=== PATIENT | male | born 1960 | race Caucasian/White ===

== ENCOUNTER 2018-11-11 17:01 | Inpatient (IN) | payer OTHER ==
[~2018-11-11] VITALS: Ht 175.3 cm; Wt 94.8 kg
--- NOTE | ~2018-11-11 | EKG ---
[place], [place] ELECTROCARDIOGRAM REPORT NAME: CHRISTIAN BURNETTE UNIT #: [id number] ROOM: 516 DOCTOR: THEODORE DRAFT REPORT BIRTHDATE: [birth year] [facility] Test Date: 2018-11-11 Test Time: 17:39:55 Pat Name: CHRISTIAN BURNETTE Department: Room: 516 Gender: M [employer] Operator: : [id number] Requested By: SYBIL DEL TORO Order Number: [id number] Reading MD: Hilaria Martins MD Measurements Intervals [place] Rate: 91 P: 21 [place]: 160 QRS: 18 QRSD: 96 T: -14 QT: 382 QTc: 471 Interpretive Statements Sinus rhythm Inferior infarct, age indeterminate Electronically Signed On 11-13-2018 8:09:22 PDT by Hilaria Martins MD CM:EKGRPT:ELECTROCARDIOGRAM REPORT [id number] SYBIL JAIMES DRAFT REPORT SYBIL DEL TORO M.D.
[~2018-11-11 17:01] MED LIST: 'TENORMIN50 MG PO; ATARAX,VISTARIL50 MG PO; CARBIDOPA/LEVOD1 TA1 PO; GLUCOPHAGE1000 MG PO; LANTUS SOL100 UNIT/1 SC; LANTUS100 U/ML SC; LOSARTAN POTASS25 M1 PO; METFORMIN500 MG PO; MIRALAX POWDER17 G1 PO; NEURONTIN300 MG PO; NOVOLOG FLEX100 U/ML SC; NOVOLOG10 ML IV; SEROQUEL25 MG PO; SIMVASTATIN5 MG PO; SINEMET PO; ZOFRAN 4 MG ED2 TAB PO
[2018-11-11 17:03] VITALS: BP 129/85
[2018-11-11 17:26] LABS: BASO # 0.1 10*3/uL (0.0-0.1); BASO % 0.5 % (0.0-1.0); EOS # 0.1 10*3/uL (0.0-0.4); EOS % 0.4 % (1.0-4.0); HEMATOCRIT 51.5 % (42.0-52.0); HEMOGLOBIN 17.7 g/dl (14.0-18.0); LYMPH # 2.5 10*3/uL (1.3-4.4); LYMPH % 14.3 % (27.0-41.0); MEAN CORPUSCULAR HGB 31.3 pg (27.0-31.0); MEAN CORPUSCULAR HGB CONC 34.4 g/dl (33.0-37.0); MEAN PLATELET VOLUME 10.4 fl (9.6-12.3); MONO # 0.6 10*3/uL (0.1-1.0); MONO % 3.6 % (3.0-9.0); NEUT # 14.2 10*3/uL (2.3-7.9); NEUT % 80.1 % (47.0-73.0); PLATELET COUNT AUTOMATED 250 10*3/uL (130-400); RED BLOOD COUNT 5.66 10*6/uL (4.50-5.90); RED CELL DISTRI WIDTH 12.1 % (0-14.5); WHITE BLOOD COUNT 17.7 10*3/uL (4.8-10.8)
[2018-11-11 17:40] LABS: ALBUMIN 3.9 gm/dl (3.1-4.5); ALKALINE PHOSPHATASE 91 U/L (45-117); BUN 8 mg/dl (7-24); CHLORIDE 103 mmol/L (98-107); CREATININE 1.22 mg/dL (0.70-1.30); POTASSIUM 4.5 mmol/L (3.5-5.1); SGOT/AST 10 IU/L (3-35); SGPT/ALT 26 U/L (12-78); SODIUM 135 mmol/L (136-145); TOTAL PROTEIN 7.4 gm/dL (6.4-8.2)
[2018-11-11 17:41] VITALS: BP 113/70
[2018-11-11 18:39] VITALS: BP 140/77
[2018-11-11 19:22] VITALS: BP 139/80
[2018-11-11 21:30] VITALS: BP 129/48
[2018-11-12 01:00] VITALS: BP 132/87
[2018-11-12 01:40] LABS: BILIRUBIN NEGATIVE (NEGATIVE); BLOOD NEGATIVE (NEGATIVE); CLARITY SL CLOUDY (CLEAR); COLOR YELLOW (YELLOW); GLUCOSE 3+ (NEGATIVE); KETONE NEGATIVE (NEGATIVE); LEUKO ESTERASE NEGATIVE (NEGATIVE); NITRITE NEGATIVE (NEGATIVE); PH 5.5 (5.0-9.0); SPECIFIC GRAVITY 1.025 (1.005-1.030); UROBILINOGEN 0.2 E.U./dl (0.2-1.0)
[2018-11-12 01:47] LABS: BACTERIA 1+; HYALINE CAST TNTC; RBC 0-2 rbc/hpf (0-2)
[2018-11-12 01:48] LABS: URINE AMPHETAMINES < 1000 (1000ng/ml); URINE BARBITURATES < 200 (200ng/ml); URINE BENZODIAZEPINES < 200 (200ng/ml); URINE CANNABINOIDS (THC) < 50 (50ng/ml); URINE COCAINE < 300 (300ng/ml); URINE METHADONE < 300 (300ng/ml); URINE OPIATES > 300 (300ng/ml); URINE PHENCYCLIDINE < 25 (25ng/ml)
[2018-11-12 02:28] VITALS: BP 141/84
[2018-11-12] MEDS ORDERED: NOVOLOG100 UNIT/1 SC (03:05)
[2018-11-12] MEDS ORDERED: REQUIP2 MG PO (03:07)
[2018-11-12] MEDS ORDERED: CYMBALTA30 MG PO (03:08)
[2018-11-12] MEDS ORDERED: HYDROXYZINE HCL25 MG PO (03:09)
[2018-11-12] MEDS ORDERED: LIPITOR40 MG PO (03:09)
[2018-11-12] MEDS ORDERED: PLAVIX75 M1 PO (03:09)
[2018-11-12] MEDS ORDERED: ENALAPRIL20 MG PO (03:10)
[2018-11-12] MEDS ORDERED: DEPAKOTE125 MG PO (03:10)
[2018-11-12] MEDS ORDERED: K-TAB20 MEQ PO (03:11)
[2018-11-12] MEDS ORDERED: CHLORTHALIDONE50 MG PO (03:11)
[2018-11-12] MEDS ORDERED: LOPID600 M1 PO (03:11)
[2018-11-12] MEDS ORDERED: ESCITALOPRAM OXA5 MG PO (03:12)
[2018-11-12 06:36] LABS: BASO # 0.1 10*3/uL (0.0-0.1); BASO % 0.4 % (0.0-1.0); EOS # 0.2 10*3/uL (0.0-0.4); EOS % 1.3 % (1.0-4.0); HEMATOCRIT 49.7 % (42.0-52.0); HEMOGLOBIN 17.2 g/dl (14.0-18.0); LYMPH # 4.4 10*3/uL (1.3-4.4); LYMPH % 37.9 % (27.0-41.0); MEAN CORPUSCULAR HGB 31.5 pg (27.0-31.0); MEAN CORPUSCULAR HGB CONC 34.6 g/dl (33.0-37.0); MEAN PLATELET VOLUME 10.3 fl (9.6-12.3); MONO # 0.7 10*3/uL (0.1-1.0); MONO % 6.2 % (3.0-9.0); NEUT # 6.2 10*3/uL (2.3-7.9); NEUT % 53.4 % (47.0-73.0); PLATELET COUNT AUTOMATED 238 10*3/uL (130-400); RED BLOOD COUNT 5.46 10*6/uL (4.50-5.90); RED CELL DISTRI WIDTH 12.3 % (0-14.5); WHITE BLOOD COUNT 11.6 10*3/uL (4.8-10.8)
[2018-11-12 06:54] LABS: ALBUMIN 3.5 gm/dl (3.1-4.5); ALKALINE PHOSPHATASE 82 U/L (45-117); BUN 15 mg/dl (7-24); CHLORIDE 102 mmol/L (98-107); CHOLESTEROL 118 mg/dL (<200); CREATININE 1.26 mg/dL (0.70-1.30); HDL CHOLESTEROL 45 mg/dl (40-60); LDL CHOLESTEROL 39 mg/dL (9-159); PHOSPHOROUS 4.3 mg/dL (2.5-4.9); POTASSIUM 4.6 mmol/L (3.5-5.1); SGOT/AST 10 IU/L (3-35); SGPT/ALT 21 U/L (12-78); SODIUM 134 mmol/L (136-145); TOTAL PROTEIN 6.9 gm/dL (6.4-8.2); TRIGLYCERIDES 169 mg/dl (<150); VLDL CHOLESTEROL 34 mg/dL (6-40)
[2018-11-12 07:05] LABS: INTERNATIONAL NORM RATIO 0.9 (2.0-3.5)
[2018-11-12 08:00] VITALS: BP 138/70
[2018-11-12 08:40] LABS: VITAMIN D, 25-HYDROXY 26.7 ng/mL (30-100)
[2018-11-12 12:00] VITALS: BP 130/58
== END 2018-11-12 15:04 | disposition home or self-care (01) | DRG 69 ==
LOC: ED 17:01 → EDHOLD 11-12 00:20 → 5E 11-12 00:20
PROVIDERS: Emergency Medicine; Student in an Organized Health Care Education/Training Program; ADMIT Internal Medicine
DX: G45.9 Transient cerebral ischemic attack, unspecified (principal); R65.10 Systemic inflammatory response syndrome (SIRS) of non-infectious origin without acute organ dysfunction; E87.1 Hypo-osmolality and hyponatremia; E87.2 Acidosis; I10 Essential (primary) hypertension; E78.5 Hyperlipidemia, unspecified; F32.9 Major depressive disorder, single episode, unspecified; Z96.652 Presence of left artificial knee joint; J44.9 Chronic obstructive pulmonary disease, unspecified; G89.29 Other chronic pain; M54.9 Dorsalgia, unspecified; E11.40 Type 2 diabetes mellitus with diabetic neuropathy, unspecified; E11.51 Type 2 diabetes mellitus with diabetic peripheral angiopathy without gangrene; F17.210 Nicotine dependence, cigarettes, uncomplicated; E86.0 Dehydration; E11.65 Type 2 diabetes mellitus with hyperglycemia; D72.829 Elevated white blood cell count, unspecified; D72.9 Disorder of white blood cells, unspecified; D72.810 Lymphocytopenia; F10.10 Alcohol abuse, uncomplicated; M15.9 Polyosteoarthritis, unspecified; E11.42 Type 2 diabetes mellitus with diabetic polyneuropathy; M54.5 Low back pain; E66.9 Obesity, unspecified; F19.10 Other psychoactive substance abuse, uncomplicated; Z79.899 Other long term (current) drug therapy; Z79.84 Long term (current) use of oral hypoglycemic drugs; Z79.4 Long term (current) use of insulin; I25.2 Old myocardial infarction; Z90.49 Acquired absence of other specified parts of digestive tract; Z83.3 Family history of diabetes mellitus; Z82.49 Family history of ischemic heart disease and other diseases of the circulatory system; Z82.3 Family history of stroke; Z71.6 Tobacco abuse counseling; Z68.30 Body mass index [BMI] 30.0-30.9, adult

== ENCOUNTER 2019-08-08 23:54 | Emergency (ER) | payer BC ==
[~2019-08-08] VITALS: Ht 175.2 cm; Wt 94.8 kg
[~2019-08-08 23:54] MED LIST changes: +CHLORTHALIDONE50 MG PO; +CYMBALTA30 MG PO; +DEPAKOTE125 MG PO; +ENALAPRIL20 MG PO; +ESCITALOPRAM OXA5 MG PO; +HYDROXYZINE HCL25 MG PO; +K-TAB20 MEQ PO; +LIPITOR40 MG PO; +LOPID600 M1 PO; +NOVOLOG100 UNIT/1 SC; +PLAVIX75 M1 PO; +REQUIP2 MG PO
[2019-08-09 00:16] LABS: BASO # 0.1 10*3/uL (0.0-0.1); BASO % 0.5 % (0.0-1.0); EOS # 0.3 10*3/uL (0.0-0.4); EOS % 2.1 % (1.0-4.0); HEMATOCRIT 45.2 % (42.0-52.0); LYMPH # 4.6 10*3/uL (1.3-4.4); LYMPH % 32.1 % (27.0-41.0); MEAN CELL VOLUME 91.3 fl (80.0-94.0); MEAN CORPUSCULAR HGB 31.9 pg (27.0-31.0); MEAN PLATELET VOLUME 9.3 fl (9.6-12.3); MONO # 1.3 10*3/uL (0.1-1.0); MONO % 9.4 % (3.0-9.0); NEUT # 7.9 10*3/uL (2.3-7.9); NEUT % 55.4 % (47.0-73.0); PLATELET COUNT AUTOMATED 296 10*3/uL (130-400); RED BLOOD COUNT 4.95 10*6/uL (4.50-5.90); RED CELL DISTRI WIDTH 13.1 % (0-14.5); WHITE BLOOD COUNT 14.2 10*3/uL (4.8-10.8)
[2019-08-09 00:26] LABS: ACT PARTIAL THROMBO TIME 27.8 SECONDS (20.0-32.1); INTERNATIONAL NORM RATIO 0.9 (2.0-3.5)
[2019-08-09 00:34] LABS: ALKALINE PHOSPHATASE 78 U/L (45-117); BUN 12 mg/dl (7-24); CHLORIDE 100 mmol/L (98-107); CREATININE 1.13 mg/dL (0.70-1.30); POTASSIUM 3.6 mmol/L (3.5-5.1); SGOT/AST 15 IU/L (3-35); SGPT/ALT 32 U/L (12-78); SODIUM 132 mmol/L (136-145); TOTAL PROTEIN 7.4 gm/dL (6.4-8.2)
[2019-08-09 00:35] LABS: TROPONIN I < 0.015 ng/ml (<0.045)
[2019-08-09 03:03] LABS: CLARITY CLEAR (CLEAR); COLOR YELLOW (YELLOW)
[2019-08-09 03:04] LABS: BILIRUBIN NEGATIVE (NEGATIVE); BLOOD NEGATIVE (NEGATIVE); GLUCOSE NEGATIVE (NEGATIVE); KETONE NEGATIVE (NEGATIVE); NITRITE NEGATIVE (NEGATIVE); SPECIFIC GRAVITY 1.015 (1.005-1.030); UROBILINOGEN 0.2 E.U./dl (0.2-1.0)
[2019-08-09 03:11] LABS: LEUKO ESTERASE TRACE (NEGATIVE)
[2019-08-09 03:12] LABS: BACTERIA TRACE; EPITHELIAL CELLS 0-2
[2019-08-09] MEDS ORDERED: VIBRAMYCIN100 MG PO (03:58)
[2019-08-09] MEDS ORDERED: PEPCID20 MG PO (03:58)
== END 2019-08-09 05:30 | disposition home or self-care (01) ==
LOC: ED 23:54
PROVIDERS: Emergency Medicine
DX: R07.89 Other chest pain (principal); K20.8 Other esophagitis; N39.0 Urinary tract infection, site not specified; Z79.899 Other long term (current) drug therapy; Z79.4 Long term (current) use of insulin; Z79.84 Long term (current) use of oral hypoglycemic drugs; Z90.49 Acquired absence of other specified parts of digestive tract

== ENCOUNTER 2019-09-01 17:11 | Observation (INO) | payer OTHER ==
[~2019-09-01] VITALS: Ht 175.2 cm; Wt 96.9 kg
[~2019-09-01 17:11] MED LIST changes: +PEPCID20 MG PO; +VIBRAMYCIN100 MG PO
[2019-09-01 17:18] VITALS: BP 147/90
--- NOTE | 2019-09-01 17:28 | NUR ---
PATIENT STATES THAT HE DID TAKE CIALIS THIS MORNING.
[2019-09-01 17:33] LABS: BASO % 0.3 % (0.0-1.0); EOS # 0.3 10*3/uL (0.0-0.4); EOS % 2.1 % (1.0-4.0); HEMATOCRIT 47.4 % (42.0-52.0); LYMPH # 3.3 10*3/uL (1.3-4.4); LYMPH % 25.7 % (27.0-41.0); MEAN CELL VOLUME 94.4 fl (80.0-94.0); MEAN CORPUSCULAR HGB 31.9 pg (27.0-31.0); MEAN CORPUSCULAR HGB CONC 33.8 g/dl (33.0-37.0); MEAN PLATELET VOLUME 9.8 fl (9.6-12.3); NEUT # 8.1 10*3/uL (2.3-7.9); NEUT % 63.6 % (47.0-73.0); PLATELET COUNT AUTOMATED 293 10*3/uL (130-400); RED BLOOD COUNT 5.02 10*6/uL (4.50-5.90); RED CELL DISTRI WIDTH 13.3 % (0-14.5); WHITE BLOOD COUNT 12.7 10*3/uL (4.8-10.8)
[2019-09-01 17:48] LABS: ALBUMIN 3.7 gm/dl (3.1-4.5); ALKALINE PHOSPHATASE 73 U/L (45-117); BUN 15 mg/dl (7-24); CHLORIDE 107 mmol/L (98-107); CREATININE 1.08 mg/dL (0.70-1.30); POTASSIUM 4.2 mmol/L (3.5-5.1); SGOT/AST 12 IU/L (3-35); SGPT/ALT 30 U/L (12-78); SODIUM 138 mmol/L (136-145); TOTAL PROTEIN 7.4 gm/dL (6.4-8.2)
[2019-09-01 17:51] LABS: ACT PARTIAL THROMBO TIME 26.8 SECONDS (20.0-32.1); INTERNATIONAL NORM RATIO 0.9 (2.0-3.5)
[2019-09-01 17:54] LABS: TROPONIN I < 0.015 ng/ml (<0.045)
--- NOTE | 2019-09-01 18:26 | NUR ---
PATIENT PLACED HIS CALL LIGHT ON AND STATES "I FEEL LIKE MY BLOOD SUGAR IS LOW IM DIABETIC". [facility] SHOWED 96. PT APPEARS A LITTELE DIAPHORETIC, ALL OTHER VS WNL.
[2019-09-01 18:28] VITALS: BP 134/93
[2019-09-01 19:36] VITALS: BP 132/97
--- NOTE | 2019-09-01 20:00 | NUR ---
24 HR chart check completed.
[2019-09-01 20:18] VITALS: BP 137/80
--- NOTE | 2019-09-01 20:18 | NUR ---
A 58, admitted to , under the services of MELISSA Reagan DO with a diagnosis of CHEST PAIN. Chief complaint is LEFT SIDED CHEST PRESSURE. Patient arrived via bed from ER. Monitor applied. Initial assessment completed. Vital signs taken and recorded. MELISSA REAGAN DO / DR CHILDS notified of admission to the unit. Orders received. See assessment for past medical history, medications and allergies. Patient and/or family oriented to unit. [facility] visitation policy reviewed. Clothing/patient valuable form completed. HITESH PÉREZ
[2019-09-01 20:30] VITALS: BP 137/80
[2019-09-01] MEDS ORDERED: HYDROCHLOROTH12.5 M3 PO (20:58)
[2019-09-01] MEDS ORDERED: ARIPIPRAZOLE5 MG PO (20:58)
[2019-09-01] MEDS ORDERED: METFORMIN HYD1000 MG PO (20:59)
[2019-09-01] MEDS ORDERED: FLUOXETINE HCL40 MG PO (21:00)
[2019-09-01] MEDS ORDERED: ENALAPRIL MALEA20 MG PO (21:01)
[2019-09-01] MEDS ORDERED: ROPINIROLE HYDRO2 M2 PO (21:02)
[2019-09-01] MEDS ORDERED: DULOXETINE HCL30 MG PO (21:03)
[2019-09-01] MEDS ORDERED: NEXIUM20 M1 PO (21:07)
[2019-09-01] MEDS ORDERED: MEN'S MULTIVIT1 EACH PO (21:08)
[2019-09-01] MEDS ORDERED: NOVOLOG MI100 UNIT/1 SC ×2 (21:10→21:11)
--- NOTE | 2019-09-01 21:13 | NUR ---
MADE AWARE THAT HOME MED ARE VERIFIED
--- NOTE | 2019-09-01 21:26 | NUR ---
REQUESTED AND RECEIVED NORCO PER PRN ORDER FOR COMPLAINTS OF LEFT SIDED CHEST PRESSURE RATING A 7. ALSO MEDICATED WITH RESTORIL TO ASSIST WITH SLEEP. WILL MONITOR
--- NOTE | 2019-09-01 21:38 | NUR ---
PATIENT ADMITTED OBSERVATION, ORDERS ENTERED FOR CARDIO CONSULT AND STRESS/ECHO IN AM. DISCUSSED OBSERVATION POLICY WITH DR CHILDS
--- NOTE | 2019-09-01 22:20 | NUR ---
MEDS "HELPING". RESTING MORE COMFORTABLY. CALL LIGHT WITHIN REACH. NO FURTHER VOICED COMPLAINTS
[2019-09-02] VITALS: BP 147/86
--- NOTE | 2019-09-02 | NUR ---
SLEEPING. NO DISTRESS NOTED. RESPIRATIONS EASY. VSS. CALL LIGHT WITHIN REACH
--- NOTE | 2019-09-02 04:53 | NUR ---
MEDICATED WITH NORCO PER PRN ORDER FOR COMPLAINTS OF LEFT SIDED CHEST PAIN RATING A 7. CALL LIGHT WITHIN REACH. WILL MONITOR FOR EFFECTIVENESS.
--- NOTE | 2019-09-02 05:30 | NUR ---
NORCO APPEARS EFFECTIVE. SLEEPING. RESPIRATIONS EASY. CALL LIGHT WITHIN REACH
[2019-09-02 05:44] LABS: BUN 16 mg/dl (7-24); CHLORIDE 107 mmol/L (98-107); CHOLESTEROL 91 mg/dL (<200); CREATININE 1.09 mg/dL (0.70-1.30); POTASSIUM 3.9 mmol/L (3.5-5.1); SODIUM 139 mmol/L (136-145); TRIGLYCERIDES 167 mg/dl (<150); VLDL CHOLESTEROL 33 mg/dL (6-40)
[2019-09-02 05:45] LABS: HDL CHOLESTEROL 38 mg/dl (40-60); LDL CHOLESTEROL 20 mg/dL (9-159)
[2019-09-02 06:07] LABS: BASO % 0.4 % (0.0-1.0); EOS # 0.3 10*3/uL (0.0-0.4); EOS % 3.3 % (1.0-4.0); HEMATOCRIT 48.1 % (42.0-52.0); LYMPH # 3.2 10*3/uL (1.3-4.4); LYMPH % 33.4 % (27.0-41.0); MEAN CELL VOLUME 96.8 fl (80.0-94.0); MEAN CORPUSCULAR HGB 32.6 pg (27.0-31.0); MEAN CORPUSCULAR HGB CONC 33.7 g/dl (33.0-37.0); MEAN PLATELET VOLUME 10.3 fl (9.6-12.3); MONO # 0.8 10*3/uL (0.1-1.0); NEUT # 5.2 10*3/uL (2.3-7.9); NEUT % 54.5 % (47.0-73.0); PLATELET COUNT AUTOMATED 279 10*3/uL (130-400); RED BLOOD COUNT 4.97 10*6/uL (4.50-5.90); RED CELL DISTRI WIDTH 13.3 % (0-14.5); WHITE BLOOD COUNT 9.6 10*3/uL (4.8-10.8)
[2019-09-02 08:00] VITALS: BP 142/90
--- NOTE | 2019-09-02 08:13 | NUR ---
'S OFFICE NOTIFIED OF CONSULT.
--- NOTE | 2019-09-02 08:34 | NUR ---
Nursing screen received and chart reviewed. Pt is a 58 y/o male admitted d/t chest pain. If pt has a decline in ADLs, functional mobility or transfers please sent occupational therapy orders. Thank you Sandy Blackman OTR/L
--- NOTE | 2019-09-02 08:41 | NUR ---
PATIENT TAKEN OFF FLOOR FOR SCHEDULED STRESS TEST.
--- NOTE | 2019-09-02 09:00 | NUR ---
[facility] in to talk to patient. Patient states lives at home with . There are 0 steps in the home. Physician: gardenia callahan Pharmacy: [facility] health services: none Patient's level of ADLs: INDEPENDENT Patient has working utilities: all working DME: none Follow-up physician's appointment after d/c: will be made by hospitalist nurse director upon discharge Does patient want to access PORTAL?: no Discharge plan discussed with patient, he lives at home with girlfriend, he is independent in adls and ambulation, he states he will return home when discharged and denies any home needs, patient is having a stress test today, case management will follow. SANTY MORALES
--- NOTE | 2019-09-02 09:49 | NUR ---
INFORMED CONSENT SIGNED FOR LEXISCAN STRESS TEST WITH DR. RAMIRES. RESTING EKG NSR, HR 79, BP 128/88. PULSE OX 97% AND LUNGS CLEAR BILATERALLY. COMPLETED ONE MINUTE OF LEXISCAN PROTOCOL RECEIVING LEXISCAN 0.4MG IV. NONDIAGNOSTIC ST CHANGES PRESENT WITH NO ARRHYTHMIAS. PT C/O SOB. LAST RECOVERY HR 104, BP 142/94. WAITING NUCLEAR SCANNING IN STABLE CONDITION.
--- NOTE | 2019-09-02 10:51 | NUR ---
PT STILL OFF FLOOR FOR STRESS TEST.
--- NOTE | 2019-09-02 11:12 | NUR ---
PATIENT RETURNED TO ROOM. CALLED AT THIS TIME REGARDING DIET ORDER. AWAITING PHYSICIAN ORDERS.
--- NOTE | 2019-09-02 11:35 | NUR ---
PT REQUESTED PO NORCO PER PRN ORDER FOR C/O CHEST PALPITATIONS. NSR/SINUS TACH PER CM. HR LOW 100'S. RATES DISCOMFORT 09/17. WILL MONITOR EFFECTIVENESS. CALL LIGHT WITHIN REACH.
[2019-09-02 12:00] VITALS: BP 141/108
--- NOTE | 2019-09-02 12:35 | NUR ---
NORCO RELIEVING PAIN PER PT. WILL CONTINUE TO MONITOR.
[2019-09-02 13:30] VITALS: BP 140/90
--- NOTE | 2019-09-02 15:23 | NUR ---
NORCO GIVEN PER PRN ORDER FOR C/O CHEST PAIN RADIATING TOWARDS HIS BACK. RATES PAIN 09/17. WILL MONITOR EFFECTIVENESS.
--- NOTE | 2019-09-02 15:29 | NUR ---
Discharge instructions reviewed with patient. Patient receptive and verbalizes understanding. Follow-up care arranged. Written instructions given to patient. RUBENS BREWER
--- NOTE | 2019-09-02 15:30 | NUR ---
PATIENT STATES HIS RIDE WILL BE HERE BY 430 PM.
== END 2019-09-02 15:29 | disposition home or self-care (01) ==
LOC: ED 17:11 → EDHOLD 18:51 → 4E 18:51 → EDHOLD 18:51 → 4E 19:40
PROVIDERS: Emergency Medicine; Student in an Organized Health Care Education/Training Program; ADMIT Internal Medicine
DX: R07.89 Other chest pain (principal); R65.10 Systemic inflammatory response syndrome (SIRS) of non-infectious origin without acute organ dysfunction; D72.810 Lymphocytopenia; E11.65 Type 2 diabetes mellitus with hyperglycemia; E11.42 Type 2 diabetes mellitus with diabetic polyneuropathy; E11.51 Type 2 diabetes mellitus with diabetic peripheral angiopathy without gangrene; E44.1 Mild protein-calorie malnutrition; F32.9 Major depressive disorder, single episode, unspecified; M54.5 Low back pain; G89.29 Other chronic pain; F10.10 Alcohol abuse, uncomplicated; F17.210 Nicotine dependence, cigarettes, uncomplicated; E66.9 Obesity, unspecified; Z68.31 Body mass index [BMI] 31.0-31.9, adult

== ENCOUNTER 2020-02-16 20:58 | Observation (INO) | payer OTHER ==
[~2020-02-16] VITALS: Ht 175.2 cm; Wt 95.7 kg
[~2020-02-16 20:58] MED LIST changes: +ARIPIPRAZOLE5 MG PO; +DULOXETINE HCL30 MG PO; +ENALAPRIL MALEA20 MG PO; +FLUOXETINE HCL40 MG PO; +HYDROCHLOROTH12.5 M3 PO; +MEN'S MULTIVIT1 EACH PO; +METFORMIN HYD1000 MG PO; +NEXIUM20 M1 PO; +NOVOLOG MI100 UNIT/1 SC; +ROPINIROLE HYDRO2 M2 PO
[2020-02-16 21:06] VITALS: BP 157/111
[2020-02-16 22:00] LABS: BASO % 0.5 % (0.0-1.0); EOS # 0.3 10*3/uL (0.0-0.4); EOS % 3.1 % (1.0-4.0); HEMATOCRIT 51.5 % (42.0-52.0); LYMPH # 2.7 10*3/uL (1.3-4.4); LYMPH % 30.5 % (27.0-41.0); MEAN CELL VOLUME 91.8 fl (80.0-94.0); MEAN CORPUSCULAR HGB 31.9 pg (27.0-31.0); MEAN CORPUSCULAR HGB CONC 34.8 g/dl (33.0-37.0); MONO # 0.5 10*3/uL (0.1-1.0); MONO % 5.8 % (3.0-9.0); NEUT # 5.3 10*3/uL (2.3-7.9); NEUT % 59.8 % (47.0-73.0); PLATELET COUNT AUTOMATED 243 10*3/uL (130-400); RED BLOOD COUNT 5.61 10*6/uL (4.50-5.90); RED CELL DISTRI WIDTH 11.9 % (0-14.5); WHITE BLOOD COUNT 8.8 10*3/uL (4.8-10.8)
[2020-02-16 22:17] LABS: ACT PARTIAL THROMBO TIME 25.3 SECONDS (20.0-32.1)
[2020-02-16 22:19] LABS: ALBUMIN 3.2 gm/dl (3.1-4.5); ALKALINE PHOSPHATASE 80 U/L (45-117); BUN 6 mg/dl (7-24); CHLORIDE 105 mmol/L (98-107); CREATININE 1.09 mg/dL (0.70-1.30); LDH 141 U/L (87-241); POTASSIUM 3.7 mmol/L (3.5-5.1); SGOT/AST 11 IU/L (3-35); SGPT/ALT 27 U/L (12-78); SODIUM 137 mmol/L (136-145); TOTAL PROTEIN 6.3 gm/dL (6.4-8.2)
[2020-02-16 22:32] LABS: TROPONIN I < 0.015 ng/ml (<0.045)
[2020-02-16 22:40] LABS: BILIRUBIN Negative (Negative); BLOOD Negative (Negative); CLARITY Clear (Clear); COLOR Yellow (Yellow); GLUCOSE 3+ (Negative); KETONE Negative (Negative); LEUKO ESTERASE Negative (Negative); NITRITE Negative (Negative); UROBILINOGEN 0.2 E.U./dl (0.0-1.0)
[2020-02-16 22:51] LABS: RBC 0-2 rbc/hpf (0-2)
[2020-02-17] VITALS (14 sets, daily range): BP systolic 136–187; BP diastolic 78–116
[2020-02-17 05:19] LABS: BUN 7 mg/dl (7-24); CHLORIDE 111 mmol/L (98-107); CHOLESTEROL 113 mg/dL (<200); CREATININE 1.11 mg/dL (0.70-1.30); HDL CHOLESTEROL 36 mg/dl (40-60); LDL CHOLESTEROL 30 mg/dL (9-159); POTASSIUM 3.8 mmol/L (3.5-5.1); SODIUM 142 mmol/L (136-145); TRIGLYCERIDES 237 mg/dl (<150); VLDL CHOLESTEROL 47 mg/dL (6-40)
[2020-02-17 06:05] LABS: BASO # 0.1 10*3/uL (0.0-0.1); BASO % 0.5 % (0.0-1.0); EOS # 0.3 10*3/uL (0.0-0.4); EOS % 3.1 % (1.0-4.0); HEMATOCRIT 48.3 % (42.0-52.0); LYMPH % 30.8 % (27.0-41.0); MEAN CELL VOLUME 92.5 fl (80.0-94.0); MEAN CORPUSCULAR HGB 31.4 pg (27.0-31.0); MEAN PLATELET VOLUME 11.3 fl (9.6-12.3); MONO # 0.7 10*3/uL (0.1-1.0); MONO % 7.3 % (3.0-9.0); NEUT # 5.7 10*3/uL (2.3-7.9); NEUT % 57.9 % (47.0-73.0); PLATELET COUNT AUTOMATED 214 10*3/uL (130-400); RED BLOOD COUNT 5.22 10*6/uL (4.50-5.90); RED CELL DISTRI WIDTH 11.9 % (0-14.5); WHITE BLOOD COUNT 9.9 10*3/uL (4.8-10.8)
[2020-02-17 07:43] LABS: VITAMIN D, 25-HYDROXY 19.7 ng/mL (30-100)
--- NOTE | 2020-02-17 08:23 | NUR ---
MED STUDENT IN SEEING PT AT THIS TIME.BP 178/106. PT C/O INTERMITTENT CHEST PAIN,NONE AT THIS TIME.THERE IS NO BED UPSTAIRS FOR THIS PT YET.---ALE NEGRETE RN
--- NOTE | 2020-02-17 09:10 | NUR ---
DR DOZIER AWARE OF PT ELEVATED BP READINGS.ADVISED TO GIVE 1000 AM MEDS AT THIS TIME.---ALE NEGRETE RN
--- NOTE | 2020-02-17 10:55 | NUR ---
PT SLEEPING SOUNDLY,SNORING---ALE NEGRETE RN
--- NOTE | 2020-02-17 11:11 | NUR ---
PT ONLY ACCEPTED THE BENTYL PART OF THE GI COCKTAIL,HE REFUSED OTHER COMPONENTS. STATES "THIS ISN'T GERD"---ALE NEGRETE RN
--- NOTE | 2020-02-17 12:22 | NUR ---
C/O CHEST PAIN "6" ON SCALE,MEDICATED WITH NORCO. PT STATES "THIS IS WHY BY BP IS HIGH". WILL EVALUATE NORCO EFFECTS AND IF NONE,HE HAS STRONGER PAIN MEDS ORDERED.---ALE NEGRETE RN
--- NOTE | 2020-02-17 12:49 | NUR ---
PT REQUESTING MORPHINE.[facility] DID NOT WORK.RATES PAIN "7" NOW---ALE NEGRETE RN
--- NOTE | 2020-02-17 12:50 | NUR ---
PT REFUSES 1800 ADA DIET.STATES HE WANTS REGULAR FOOD . DIETARY NOTIFIED.--ALE NEGRETE RN
[2020-02-17 13:03] LABS: URINE AMPHETAMINES < 1000 (1000ng/ml); URINE BARBITURATES < 200 (200ng/ml); URINE BENZODIAZEPINES < 200 (200ng/ml); URINE CANNABINOIDS (THC) < 50 (50ng/ml); URINE COCAINE < 300 (300ng/ml); URINE METHADONE < 300 (300ng/ml); URINE OPIATES > 300 (300ng/ml)
--- NOTE | 2020-02-17 13:03 | NUR ---
PT RESTING IN BED WATCHING TV. ASSISTED PT TO ORDER HISLUNCH TRY 5U OF INSULIN GIVEN SQ FOR SUGAR OF 221. DENIES THE NEED FOR ANYTHING ELSE AT THIS TIME. CALL LIGHT WITHIN REACH.
[2020-02-17 13:04] LABS: URINE PHENCYCLIDINE < 25 (25ng/ml)
--- NOTE | 2020-02-17 14:12 | NUR ---
CONSULT CALLED TO CARDIOLOGY. STATES THAT DR. AWAD WAS ON.
--- NOTE | 2020-02-17 14:41 | NUR ---
CALLED AND GOT DIET ORDER FOR DIET CHANGED FROM 1800 TO REGULAR PER RESIDENT REQUEST
--- NOTE | 2020-02-17 17:15 | NUR ---
PT STATES CHEST PAIN IS COMING BACK REQUESTING PAIN MEDICATION. DOES STATE HE WILL ALSO BE ORDERING DINNER. DENIES ANYTHING ELSE AT THIS TIME. CALL LIGHT WITHIN REACH.
--- NOTE | 2020-02-17 21:13 | NUR ---
PATIENT C/O INCREASED PAIN IN CHEST. REQUESTING MORPHINE.
--- NOTE | 2020-02-17 21:48 | NUR ---
CALL PLACED TO DR. PELAYO TO REPORT BS OF 412. STATES TO GIVE 22U WITH A SUGAR GREATER THAN 400. PT ALSO GETTING 10U 70/30. JUST WANTED TO CLARIFY HE WANTED TO GIVE HIM 22U. STATES TO GIVEN AND JUST MONITOR. CALL LIGHT REMAINS IN REACH.
--- NOTE | 2020-02-17 23:05 | NUR ---
REPORT FROM KEMAR DAVIS AT THIS TIME
[2020-02-18] VITALS (8 sets, daily range): BP systolic 99–148; BP diastolic 60–103
--- NOTE | 2020-02-18 03:15 | NUR ---
REPORT RECEIVED FROM KAREL JUAN AT THIS TIME.
[2020-02-18 06:17] LABS: BASO % 0.1 % (0.0-1.0); HEMATOCRIT 43.9 % (42.0-52.0); LYMPH # 1.2 10*3/uL (1.3-4.4); LYMPH % 6.9 % (27.0-41.0); MEAN CELL VOLUME 92.4 fl (80.0-94.0); MEAN CORPUSCULAR HGB 32.2 pg (27.0-31.0); MEAN CORPUSCULAR HGB CONC 34.9 g/dl (33.0-37.0); MEAN PLATELET VOLUME 11.4 fl (9.6-12.3); MONO # 0.6 10*3/uL (0.1-1.0); MONO % 3.7 % (3.0-9.0); NEUT # 15.2 10*3/uL (2.3-7.9); NEUT % 88.7 % (47.0-73.0); PLATELET COUNT AUTOMATED 223 10*3/uL (130-400); RED BLOOD COUNT 4.75 10*6/uL (4.50-5.90); RED CELL DISTRI WIDTH 11.7 % (0-14.5); WHITE BLOOD COUNT 17.2 10*3/uL (4.8-10.8)
[2020-02-18 06:18] LABS: ABG BASE EXCESS -0.6 mmol/L (-2.0-2.0); ARTERIAL BLOOD GAS PH 7.409 (7.35-7.45)
[2020-02-18 06:39] LABS: ALBUMIN 2.9 gm/dl (3.1-4.5); ALKALINE PHOSPHATASE 69 U/L (45-117); BUN 28 mg/dl (7-24); CHLORIDE 109 mmol/L (98-107); CREATININE 0.96 mg/dL (0.70-1.30); LDH 118 U/L (87-241); POTASSIUM 4.2 mmol/L (3.5-5.1); SGOT/AST 9 IU/L (3-35); SGPT/ALT 24 U/L (12-78); SODIUM 139 mmol/L (136-145); TOTAL PROTEIN 5.9 gm/dL (6.4-8.2)
--- NOTE | 2020-02-18 07:59 | NUR ---
PT C/O ANXIETY R/T HE AND HIS GIRLFRIEND'S BREAK UP. HE ASKED FOR ATIVAN WHICH HE WAS GIVEN PER ORDER.---ALE NEGRETE RN
--- NOTE | 2020-02-18 09:00 | NUR ---
A 59, admitted to 4E, under the services of BERNARDO Zamora DO with a diagnosis of CHEST PAIN. Chief complaint is CHEST PAIN. Patient arrived via bed from ER. Monitor applied. Initial assessment completed. Vital signs taken and recorded. BERNARDO ZAMORA DO notified of admission to the unit. Orders received. See assessment for past medical history, medications and allergies. Patient and/or family oriented to unit. [facility] visitation policy reviewed. Clothing/patient valuable form completed. KEILA PALOMO
[2020-02-18] MEDS ORDERED: ASPIRIN CHEWABL81 MG PO (10:33)
--- NOTE | 2020-02-18 10:49 | NUR ---
NORCO 5/325 AND ROBAXIN GIVEN PER MAR FOR C/O GENERALIZED PAIN,11/18.
--- NOTE | 2020-02-18 12:06 | NUR ---
MORPHINE GIVEN PER PT REQUEST. PT STATES NORCO IS NOT EFFECTIVE FOR PAIN R/T "LIL BLOOD CLOTS IN HIUS LUNGS " THE "DR TOLD HIM SO ".RESPS EASY AT THIS TIME. VOICES NO OTHER NEEDS. STABLE AT THIS TIME. CALL LIGHT IN REACH.
--- NOTE | 2020-02-18 14:48 | NUR ---
[facility] Manager spoke to patient via phone. Patient states lives at home alone with his family checking in on him. There are 0 steps in the home. Physician: Dr. Hossein Mann Pharmacy: [facility] Home health services: none Patient's level of ADLs: INDEPENDENT Patient has working utilities: yes DME: c-pap Follow-up physician's appointment after d/c: will be made by the hospitalist nurse director upon discharge Does patient want to access PORTAL?: no Discharge plan discussed with patient. He lives at home alone with her family checking in on him. He states he is independent in his ADLs and ambulation. Discussed home health care services and he declines. He would like to have meals delivered. Explained he would need to reach out to his insurance for delivered meals and he verbalized an understanding. CM will continue to follow for any discharge planning needs. When medically stable he will be discharged to home. He states his daughter will provide transportation on discharge. DRAKE BORJAS
[2020-02-19] VITALS: BP 142/93
--- NOTE | 2020-02-19 01:59 | NUR ---
CHART CHECK COMPLETE.
[2020-02-19 06:55] LABS: BASO % 0.1 % (0.0-1.0); HEMATOCRIT 34.7 % (42.0-52.0); LYMPH # 2.5 10*3/uL (1.3-4.4); MEAN CORPUSCULAR HGB 32.2 pg (27.0-31.0); MEAN CORPUSCULAR HGB CONC 33.1 g/dl (33.0-37.0); MEAN PLATELET VOLUME 11.8 fl (9.6-12.3); MONO # 1.2 10*3/uL (0.1-1.0); MONO % 5.8 % (3.0-9.0); NEUT # 17.1 10*3/uL (2.3-7.9); NEUT % 81.4 % (47.0-73.0); PLATELET COUNT AUTOMATED 235 10*3/uL (130-400); RED BLOOD COUNT 3.57 10*6/uL (4.50-5.90); RED CELL DISTRI WIDTH 12.3 % (0-14.5)
[2020-02-19 06:56] LABS: ALBUMIN 2.9 gm/dl (3.1-4.5); CHLORIDE 108 mmol/L (98-107); LDH 103 U/L (87-241); POTASSIUM 3.6 mmol/L (3.5-5.1); SGOT/AST 4 IU/L (3-35); SGPT/ALT 18 U/L (12-78); SODIUM 141 mmol/L (136-145); TOTAL PROTEIN 5.5 gm/dL (6.4-8.2)
[2020-02-19 06:57] LABS: ALKALINE PHOSPHATASE 51 U/L (45-117); CPK 31 U/L (39-308)
--- NOTE | 2020-02-19 06:59 | NUR ---
DR. PELAYO CALLED IN REGARDS TO LACTIC ACID OF 3.9. WILL PASS ONTO DAY TEAM.
[2020-02-19 07:01] LABS: MEAN CELL VOLUME 97.2 fl (80.0-94.0)
[2020-02-19 07:04] LABS: BUN 55 mg/dl (7-24)
[2020-02-19 08:00] VITALS: BP 95/73
--- NOTE | 2020-02-19 09:28 | NUR ---
Dr. Meyers notified of lactic acid of 3.7 2 hour post draw.
--- NOTE | 2020-02-19 11:41 | NUR ---
REPORT GIVEN TO KAREL TIWARI AT [facility].
--- NOTE | 2020-02-19 11:42 | NUR ---
REPORT GIVEN TO [facility]. LABS, DEMOGRAPHICS, IMAGING AND CONSENT REQUESTED AND COMPLETE.
--- NOTE | 2020-02-19 11:45 | NUR ---
PT DISCHARGED AND TRANSPORTED BY [facility] TO [facility] ER. VSS.
== END 2020-02-19 11:45 | disposition other institution (70) ==
LOC: ED 20:58 → EDHOLD 02-17 01:25 → 4E 02-17 01:25 → EDHOLD 02-17 01:25 → 4E 02-18 08:22
PROVIDERS: Emergency Medicine; Internal Medicine; Internal Medicine Critical Care Medicine; ADMIT Internal Medicine; ATTEND Internal Medicine
DX: R07.89 Other chest pain (principal); I25.10 Atherosclerotic heart disease of native coronary artery without angina pectoris; R65.10 Systemic inflammatory response syndrome (SIRS) of non-infectious origin without acute organ dysfunction; J96.01 Acute respiratory failure with hypoxia; R00.0 Tachycardia, unspecified; R06.82 Tachypnea, not elsewhere classified; E87.2 Acidosis; R73.9 Hyperglycemia, unspecified; F17.210 Nicotine dependence, cigarettes, uncomplicated; I10 Essential (primary) hypertension; M19.90 Unspecified osteoarthritis, unspecified site; E78.5 Hyperlipidemia, unspecified; J44.9 Chronic obstructive pulmonary disease, unspecified; E11.40 Type 2 diabetes mellitus with diabetic neuropathy, unspecified; E66.9 Obesity, unspecified; E44.1 Mild protein-calorie malnutrition; Z68.31 Body mass index [BMI] 31.0-31.9, adult; Z20.828 Contact with and (suspected) exposure to other viral communicable diseases; Z90.49 Acquired absence of other specified parts of digestive tract; Z95.5 Presence of coronary angioplasty implant and graft; Z98.890 Other specified postprocedural states

== ENCOUNTER 2021-01-22 11:12 | Inpatient (IN) | payer OTHER ==
[~2021-01-22] VITALS: Ht 175.2 cm; Wt 97.5 kg
[~2021-01-22 11:12] MED LIST changes: +ASPIRIN CHEWABL81 MG PO
[2021-01-22 11:13] VITALS: BP 148/100
[2021-01-22 12:00] LABS: BASO % 0.5 % (0.0-1.0); EOS # 0.1 10*3/uL (0.0-0.4); EOS % 1.6 % (1.0-4.0); HEMATOCRIT 48.2 % (42.0-52.0); LYMPH # 1.2 10*3/uL (1.3-4.4); MEAN CELL VOLUME 88.8 fl (80.0-94.0); MEAN CORPUSCULAR HGB 30.8 pg (27.0-31.0); MEAN CORPUSCULAR HGB CONC 34.6 g/dl (33.0-37.0); MEAN PLATELET VOLUME 11.1 fl (9.6-12.3); MONO # 0.6 10*3/uL (0.1-1.0); MONO % 9.8 % (3.0-9.0); NEUT # 4.4 10*3/uL (2.3-7.9); NEUT % 68.8 % (47.0-73.0); PLATELET COUNT AUTOMATED 198 10*3/uL (130-400); RED BLOOD COUNT 5.43 10*6/uL (4.50-5.90); RED CELL DISTRI WIDTH 13.6 % (0-14.5); WHITE BLOOD COUNT 6.4 10*3/uL (4.8-10.8)
[2021-01-22 12:17] LABS: ALBUMIN 2.8 gm/dl (3.1-4.5); ALKALINE PHOSPHATASE 111 U/L (45-117); BUN 8 mg/dl (7-24); CHLORIDE 100 mmol/L (98-107); CREATININE 1.16 mg/dL (0.70-1.30); POTASSIUM 4.2 mmol/L (3.5-5.1); SGOT/AST 18 IU/L (3-35); SGPT/ALT 32 U/L (12-78); SODIUM 131 mmol/L (136-145); TOTAL PROTEIN 6.6 gm/dL (6.4-8.2)
[2021-01-22 12:37] LABS: ETHYL ALCOHOL < 3.0 mg/dl (<3); TROPONIN I < 0.015 ng/ml (<0.045)
[2021-01-22 14:14] LABS: BILIRUBIN Negative (Negative); BLOOD Negative (Negative); CLARITY Clear (Clear); COLOR Yellow (Yellow); GLUCOSE 3+ (Negative); KETONE Trace (Negative); LEUKO ESTERASE Negative (Negative); NITRITE Negative (Negative); SPECIFIC GRAVITY >= 1.030 (1.001-1.030); UROBILINOGEN 0.2 E.U./dl (0.0-1.0)
[2021-01-22 14:25] LABS: URINE AMPHETAMINES > 1000 (1000ng/ml); URINE BARBITURATES < 200 (200ng/ml); URINE BENZODIAZEPINES < 200 (200ng/ml); URINE CANNABINOIDS (THC) < 50 (50ng/ml); URINE COCAINE < 300 (300ng/ml); URINE METHADONE < 300 (300ng/ml); URINE OPIATES < 300 (300ng/ml)
[2021-01-22 14:30] LABS: URINE PHENCYCLIDINE < 25 (25ng/ml)
[2021-01-22 20:26] VITALS: BP 140/96
[2021-01-23] VITALS: BP 160/88
[2021-01-23 06:00] LABS: ALBUMIN 2.5 gm/dl (3.1-4.5); BUN 10 mg/dl (7-24); CHLORIDE 106 mmol/L (98-107); CHOLESTEROL 118 mg/dL (<200); CREATININE 0.92 mg/dL (0.70-1.30); POTASSIUM 4.1 mmol/L (3.5-5.1); SGOT/AST 18 IU/L (3-35); SODIUM 139 mmol/L (136-145)
[2021-01-23 06:06] LABS: ALKALINE PHOSPHATASE 89 U/L (45-117); FREE T4 0.87 ng/dl (0.76-1.46); LDL CHOLESTEROL 52 mg/dL (9-159); SGPT/ALT 26 U/L (12-78); TOTAL PROTEIN 5.8 gm/dL (6.4-8.2); TRIGLYCERIDES 175 mg/dl (<150)
[2021-01-23 06:12] LABS: BASO % 0.7 % (0.0-1.0); EOS # 0.2 10*3/uL (0.0-0.4); EOS % 2.8 % (1.0-4.0); LYMPH # 1.9 10*3/uL (1.3-4.4); LYMPH % 32.9 % (27.0-41.0); MEAN CELL VOLUME 90.2 fl (80.0-94.0); MEAN CORPUSCULAR HGB 30.4 pg (27.0-31.0); MEAN CORPUSCULAR HGB CONC 33.7 g/dl (33.0-37.0); MEAN PLATELET VOLUME 11.8 fl (9.6-12.3); MONO # 0.6 10*3/uL (0.1-1.0); MONO % 11.1 % (3.0-9.0); NEUT % 52.1 % (47.0-73.0); PLATELET COUNT AUTOMATED 182 10*3/uL (130-400); RED CELL DISTRI WIDTH 13.4 % (0-14.5); WHITE BLOOD COUNT 5.7 10*3/uL (4.8-10.8)
[2021-01-23 06:20] LABS: ACT PARTIAL THROMBO TIME 26.5 SECONDS (20.0-32.1)
[2021-01-23 07:10] LABS: VITAMIN D, 25-HYDROXY 14.9 ng/mL (30-100)
[2021-01-23 08:04] VITALS: BP 136/84
[2021-01-23 11:01] VITALS: BP 128/60
[2021-01-23 12:40] VITALS: BP 135/97
[2021-01-23] MEDS ORDERED: Zestril,Prinivi40 MG PO (16:35)
[2021-01-23] MEDS ORDERED: LEVETIRACETAM500 M3 PO (16:35)
[2021-01-23 17:10] VITALS: BP 149/96
== END 2021-01-23 19:01 | disposition home or self-care (01) | DRG 100 ==
LOC: ED 11:12 → 4E 15:38 → EDHOLD 15:38 → 4E 01-23 16:38
PROVIDERS: Emergency Medicine; ADMIT Internal Medicine; ATTEND Internal Medicine
DX: R56.9 Unspecified convulsions (principal); E43 Unspecified severe protein-calorie malnutrition; F15.10 Other stimulant abuse, uncomplicated; E11.65 Type 2 diabetes mellitus with hyperglycemia; F17.210 Nicotine dependence, cigarettes, uncomplicated; D53.9 Nutritional anemia, unspecified; E83.41 Hypermagnesemia; I10 Essential (primary) hypertension; J44.9 Chronic obstructive pulmonary disease, unspecified; Z86.73 Personal history of transient ischemic attack (TIA), and cerebral infarction without residual deficits; I25.2 Old myocardial infarction; Z90.49 Acquired absence of other specified parts of digestive tract; Z82.49 Family history of ischemic heart disease and other diseases of the circulatory system; Z83.3 Family history of diabetes mellitus; Z79.82 Long term (current) use of aspirin; Z79.899 Other long term (current) drug therapy; Z82.3 Family history of stroke; Z79.4 Long term (current) use of insulin

== ENCOUNTER 2021-03-08 08:41 | Inpatient (IN) | payer OTHER ==
[~2021-03-08] VITALS: Ht 175.3 cm; Wt 92.5 kg
[2021-03-08] VITALS (9 sets, daily range): BP systolic 147–187; BP diastolic 86–128
[~2021-03-08 08:41] MED LIST changes: +LEVETIRACETAM500 M3 PO; +Zestril,Prinivi40 MG PO
[2021-03-08 09:46] LABS: BASO % 0.5 % (0.0-1.0); EOS # 0.1 10*3/uL (0.0-0.4); EOS % 2.3 % (1.0-4.0); HEMATOCRIT 52.3 % (42.0-52.0); LYMPH # 1.5 10*3/uL (1.3-4.4); LYMPH % 26.8 % (27.0-41.0); MEAN CELL VOLUME 87.6 fl (80.0-94.0); MEAN CORPUSCULAR HGB 30.7 pg (27.0-31.0); MEAN PLATELET VOLUME 10.1 fl (9.6-12.3); MONO # 0.6 10*3/uL (0.1-1.0); MONO % 9.6 % (3.0-9.0); NEUT # 3.4 10*3/uL (2.3-7.9); NEUT % 60.4 % (47.0-73.0); PLATELET COUNT AUTOMATED 225 10*3/uL (130-400); RED BLOOD COUNT 5.97 10*6/uL (4.50-5.90); RED CELL DISTRI WIDTH 13.6 % (0-14.5); WHITE BLOOD COUNT 5.7 10*3/uL (4.8-10.8)
[2021-03-08 10:00] LABS: ALBUMIN 3.2 gm/dl (3.1-4.5); ALKALINE PHOSPHATASE 108 U/L (45-117); BUN 10 mg/dl (7-24); CHLORIDE 106 mmol/L (98-107); CREATININE 1.04 mg/dL (0.70-1.30); SGOT/AST 18 IU/L (3-35); SGPT/ALT 31 U/L (12-78); SODIUM 134 mmol/L (136-145); TOTAL PROTEIN 7.2 gm/dL (6.4-8.2)
[2021-03-08 10:01] LABS: ETHYL ALCOHOL < 3.0 mg/dl (<3)
[2021-03-09 06:11] VITALS: BP 162/110
[2021-03-09 08:00] VITALS: BP 150/99
[2021-03-09 12:00] VITALS: BP 168/100
[2021-03-09] MEDS ORDERED: CELECOXIB200 M1 PO (12:39)
[2021-03-09] MEDS ORDERED: 'CLONIDINE0.1 MG PO (12:39)
[2021-03-09] MEDS ORDERED: JARDIANCE25 MG PO (12:41)
[2021-03-09] MEDS ORDERED: NEURONTIN300 MG PO (12:42)
[2021-03-09] MEDS ORDERED: OMEPRAZOLE MAGN20 MG PO (12:43)
[2021-03-09] MEDS ORDERED: GLIPIZIDE5 MG PO (12:43)
[2021-03-09] MEDS ORDERED: PROPRANOLOL HCL60 M1 PO (12:45)
[2021-03-09 15:52] VITALS: BP 146/90
== END 2021-03-09 17:00 | disposition left against medical advice (07) | DRG 894 ==
LOC: ED 08:41 → EDHOLD 09:35 → 5E 09:35 → EDHOLD 11:16 → 5E 16:56
PROVIDERS: Emergency Medicine; Registered Nurse; ADMIT Student in an Organized Health Care Education/Training Program; ATTEND Student in an Organized Health Care Education/Training Program
DX: F10.239 Alcohol dependence with withdrawal, unspecified (principal); E44.0 Moderate protein-calorie malnutrition; E11.65 Type 2 diabetes mellitus with hyperglycemia; J44.9 Chronic obstructive pulmonary disease, unspecified; Z68.30 Body mass index [BMI] 30.0-30.9, adult; Z79.4 Long term (current) use of insulin; I10 Essential (primary) hypertension; F32.9 Major depressive disorder, single episode, unspecified; E78.2 Mixed hyperlipidemia; E11.40 Type 2 diabetes mellitus with diabetic neuropathy, unspecified; E11.51 Type 2 diabetes mellitus with diabetic peripheral angiopathy without gangrene; F17.210 Nicotine dependence, cigarettes, uncomplicated; R56.9 Unspecified convulsions; E83.51 Hypocalcemia; Z53.29 Procedure and treatment not carried out because of patient's decision for other reasons; Z79.82 Long term (current) use of aspirin; Z79.899 Other long term (current) drug therapy; Z82.49 Family history of ischemic heart disease and other diseases of the circulatory system; Z82.3 Family history of stroke; Z83.3 Family history of diabetes mellitus

== ENCOUNTER 2021-05-15 20:09 | Inpatient (IN) | payer OTHER ==
[~2021-05-15] VITALS: Ht 175.3 cm; Wt 93.2 kg
[~2021-05-15 20:09] MED LIST changes: +'CLONIDINE0.1 MG PO; +CELECOXIB200 M1 PO; +GLIPIZIDE5 MG PO; +JARDIANCE25 MG PO; +OMEPRAZOLE MAGN20 MG PO; +PROPRANOLOL HCL60 M1 PO
[2021-05-15 21:17] VITALS: BP 172/96
[2021-05-15 22:34] LABS: BASO % 0.5 % (0.0-1.0); EOS # 0.1 10*3/uL (0.0-0.4); EOS % 0.8 % (1.0-4.0); HEMATOCRIT 48.6 % (42.0-52.0); LYMPH # 1.9 10*3/uL (1.3-4.4); LYMPH % 24.8 % (27.0-41.0); MEAN CELL VOLUME 90.3 fl (80.0-94.0); MEAN CORPUSCULAR HGB 32.3 pg (27.0-31.0); MEAN CORPUSCULAR HGB CONC 35.8 g/dl (33.0-37.0); MEAN PLATELET VOLUME 9.8 fl (9.6-12.3); MONO # 0.5 10*3/uL (0.1-1.0); MONO % 6.9 % (3.0-9.0); NEUT % 66.6 % (47.0-73.0); PLATELET COUNT AUTOMATED 210 10*3/uL (130-400); RED BLOOD COUNT 5.38 10*6/uL (4.50-5.90); RED CELL DISTRI WIDTH 12.1 % (0-14.5); WHITE BLOOD COUNT 7.5 10*3/uL (4.8-10.8)
[2021-05-15 22:48] LABS: ALKALINE PHOSPHATASE 96 U/L (45-117); BUN 9 mg/dl (7-24); CHLORIDE 106 mmol/L (98-107); CREATININE 1.03 mg/dL (0.70-1.30); POTASSIUM 3.5 mmol/L (3.5-5.1); SGOT/AST 17 IU/L (3-35); SGPT/ALT 30 U/L (12-78); SODIUM 136 mmol/L (136-145); TOTAL PROTEIN 6.3 gm/dL (6.4-8.2)
[2021-05-15 22:57] LABS: ETHYL ALCOHOL < 3.0 mg/dl (<3)
[2021-05-15 23:54] LABS: BILIRUBIN Negative (Negative); BLOOD Negative (Negative); CLARITY Clear (Clear); COLOR Yellow (Yellow); GLUCOSE 2+ (Negative); KETONE Trace (Negative); LEUKO ESTERASE Negative (Negative); NITRITE Negative (Negative); SPECIFIC GRAVITY 1.015 (1.001-1.030); UROBILINOGEN 0.2 E.U./dl (0.0-1.0)
[2021-05-16] VITALS (8 sets, daily range): BP systolic 110–169; BP diastolic 60–121
[2021-05-16 00:03] LABS: URINE AMPHETAMINES < 1000 (1000ng/ml); URINE BARBITURATES < 200 (200ng/ml); URINE BENZODIAZEPINES < 200 (200ng/ml); URINE CANNABINOIDS (THC) < 50 (50ng/ml); URINE COCAINE < 300 (300ng/ml); URINE METHADONE < 300 (300ng/ml); URINE OPIATES < 300 (300ng/ml)
[2021-05-16 00:09] LABS: URINE PHENCYCLIDINE < 25 (25ng/ml)
[2021-05-16] MEDS ORDERED: AMITRIPTYLINE50 MG PO (13:33)
[2021-05-16] MEDS ORDERED: LYRICA200 M1 PO (13:35)
[2021-05-16] MEDS ORDERED: NEURONTIN300 MG PO (19:36)
[2021-05-17 00:18] VITALS: BP 172/110
[2021-05-17 04:00] VITALS: BP 154/88
[2021-05-17 08:00] VITALS: BP 136/88; BP 153/102
[2021-05-17 12:00] VITALS: BP 109/83
[2021-05-17 16:00] VITALS: BP 134/89
[2021-05-17 20:00] VITALS: BP 102/47
[2021-05-18] VITALS (62 sets, daily range): BP systolic 93–166; BP diastolic 53–108
[2021-05-18 02:44] LABS: ALKALINE PHOSPHATASE 81 U/L (45-117); BUN 13 mg/dl (7-24); CHLORIDE 110 mmol/L (98-107); CREATININE 0.87 mg/dL (0.70-1.30); POTASSIUM 3.5 mmol/L (3.5-5.1); SGOT/AST 20 IU/L (3-35); SGPT/ALT 33 U/L (12-78); SODIUM 139 mmol/L (136-145); TOTAL PROTEIN 5.8 gm/dL (6.4-8.2)
[2021-05-18 04:37] LABS: BASO % 0.2 % (0.0-1.0); EOS # 0.2 10*3/uL (0.0-0.4); EOS % 1.8 % (1.0-4.0); HEMATOCRIT 47.2 % (42.0-52.0); LYMPH % 24.3 % (27.0-41.0); MEAN CELL VOLUME 94.2 fl (80.0-94.0); MEAN CORPUSCULAR HGB 31.5 pg (27.0-31.0); MEAN CORPUSCULAR HGB CONC 33.5 g/dl (33.0-37.0); MEAN PLATELET VOLUME 10.2 fl (9.6-12.3); MONO # 0.5 10*3/uL (0.1-1.0); MONO % 6.5 % (3.0-9.0); NEUT # 5.6 10*3/uL (2.3-7.9); NEUT % 66.7 % (47.0-73.0); PLATELET COUNT AUTOMATED 180 10*3/uL (130-400); RED BLOOD COUNT 5.01 10*6/uL (4.50-5.90); RED CELL DISTRI WIDTH 12.4 % (0-14.5); WHITE BLOOD COUNT 8.3 10*3/uL (4.8-10.8)
[2021-05-18 05:03] LABS: THYROID STIM HORMONE (HS) 1.33 uIU/ml (0.358-4.75)
[2021-05-19] VITALS: BP 136/93
[2021-05-19 04:00] VITALS: BP 133/88
[2021-05-19 05:19] LABS: ALKALINE PHOSPHATASE 83 U/L (45-117); BUN 10 mg/dl (7-24); CHLORIDE 110 mmol/L (98-107); CREATININE 0.84 mg/dL (0.70-1.30); SGOT/AST 16 IU/L (3-35); SGPT/ALT 29 U/L (12-78); SODIUM 140 mmol/L (136-145)
[2021-05-19 06:13] LABS: BASO % 0.2 % (0.0-1.0); EOS # 0.1 10*3/uL (0.0-0.4); EOS % 0.5 % (1.0-4.0); HEMATOCRIT 48.9 % (42.0-52.0); LYMPH # 1.5 10*3/uL (1.3-4.4); LYMPH % 15.6 % (27.0-41.0); MEAN CELL VOLUME 92.6 fl (80.0-94.0); MEAN CORPUSCULAR HGB 32.2 pg (27.0-31.0); MEAN CORPUSCULAR HGB CONC 34.8 g/dl (33.0-37.0); MEAN PLATELET VOLUME 10.7 fl (9.6-12.3); MONO # 0.7 10*3/uL (0.1-1.0); NEUT # 7.1 10*3/uL (2.3-7.9); NEUT % 76.2 % (47.0-73.0); PLATELET COUNT AUTOMATED 212 10*3/uL (130-400); RED BLOOD COUNT 5.28 10*6/uL (4.50-5.90); RED CELL DISTRI WIDTH 12.2 % (0-14.5); WHITE BLOOD COUNT 9.3 10*3/uL (4.8-10.8)
[2021-05-19 08:00] VITALS: BP 158/101
[2021-05-19 12:00] VITALS: BP 106/80
[2021-05-19 16:00] VITALS: BP 114/80
[2021-05-19 20:00] VITALS: BP 129/94
[2021-05-20] VITALS: BP 133/83
[2021-05-20 04:00] VITALS: BP 130/89
[2021-05-20 05:00] LABS: BUN 17 mg/dl (7-24); CHLORIDE 112 mmol/L (98-107); CREATININE 0.99 mg/dL (0.70-1.30); POTASSIUM 3.6 mmol/L (3.5-5.1); SODIUM 141 mmol/L (136-145)
[2021-05-20 06:13] LABS: BASO % 0.4 % (0.0-1.0); EOS # 0.1 10*3/uL (0.0-0.4); EOS % 0.7 % (1.0-4.0); HEMATOCRIT 49.3 % (42.0-52.0); LYMPH # 1.6 10*3/uL (1.3-4.4); LYMPH % 14.3 % (27.0-41.0); MEAN CELL VOLUME 94.3 fl (80.0-94.0); MEAN CORPUSCULAR HGB 31.9 pg (27.0-31.0); MEAN CORPUSCULAR HGB CONC 33.9 g/dl (33.0-37.0); MEAN PLATELET VOLUME 11.2 fl (9.6-12.3); MONO # 0.7 10*3/uL (0.1-1.0); MONO % 6.5 % (3.0-9.0); NEUT # 8.6 10*3/uL (2.3-7.9); NEUT % 77.4 % (47.0-73.0); PLATELET COUNT AUTOMATED 208 10*3/uL (130-400); RED BLOOD COUNT 5.23 10*6/uL (4.50-5.90); RED CELL DISTRI WIDTH 12.6 % (0-14.5); WHITE BLOOD COUNT 11.1 10*3/uL (4.8-10.8)
[2021-05-20 08:00] VITALS: BP 163/109
[2021-05-20 12:00] VITALS: BP 151/103
[2021-05-20 16:00] VITALS: BP 179/117
[2021-05-20 20:00] VITALS: BP 155/90
[2021-05-21] VITALS (9 sets, daily range): BP systolic 137–172; BP diastolic 85–119
[2021-05-21 04:26] LABS: ALKALINE PHOSPHATASE 79 U/L (45-117); BUN 13 mg/dl (7-24); CHLORIDE 111 mmol/L (98-107); CREATININE 0.93 mg/dL (0.70-1.30); POTASSIUM 3.4 mmol/L (3.5-5.1); SGOT/AST 27 IU/L (3-35); SGPT/ALT 27 U/L (12-78); SODIUM 141 mmol/L (136-145)
[2021-05-21 05:23] LABS: BASO # 0.1 10*3/uL (0.0-0.1); BASO % 0.5 % (0.0-1.0); EOS # 0.1 10*3/uL (0.0-0.4); EOS % 1.3 % (1.0-4.0); HEMATOCRIT 47.6 % (42.0-52.0); LYMPH # 2.5 10*3/uL (1.3-4.4); LYMPH % 26.1 % (27.0-41.0); MEAN CELL VOLUME 93.7 fl (80.0-94.0); MEAN CORPUSCULAR HGB 31.9 pg (27.0-31.0); MEAN PLATELET VOLUME 11.3 fl (9.6-12.3); MONO # 1.1 10*3/uL (0.1-1.0); MONO % 11.1 % (3.0-9.0); NEUT # 5.7 10*3/uL (2.3-7.9); NEUT % 60.6 % (47.0-73.0); PLATELET COUNT AUTOMATED 191 10*3/uL (130-400); RED BLOOD COUNT 5.08 10*6/uL (4.50-5.90); RED CELL DISTRI WIDTH 12.4 % (0-14.5); WHITE BLOOD COUNT 9.5 10*3/uL (4.8-10.8)
[2021-05-22 04:00] VITALS: BP 160/108
[2021-05-22 05:00] LABS: BUN 9 mg/dl (7-24); CHLORIDE 109 mmol/L (98-107); CREATININE 0.77 mg/dL (0.70-1.30); POTASSIUM 3.3 mmol/L (3.5-5.1); SGOT/AST 21 IU/L (3-35); SGPT/ALT 28 U/L (12-78); SODIUM 139 mmol/L (136-145); TOTAL PROTEIN 6.6 gm/dL (6.4-8.2)
[2021-05-22 05:01] LABS: ALKALINE PHOSPHATASE 87 U/L (45-117)
[2021-05-22 06:14] LABS: BASO % 0.3 % (0.0-1.0); EOS # 0.1 10*3/uL (0.0-0.4); EOS % 0.9 % (1.0-4.0); HEMATOCRIT 49.8 % (42.0-52.0); LYMPH # 1.9 10*3/uL (1.3-4.4); LYMPH % 21.9 % (27.0-41.0); MEAN CELL VOLUME 92.2 fl (80.0-94.0); MEAN CORPUSCULAR HGB 31.9 pg (27.0-31.0); MEAN CORPUSCULAR HGB CONC 34.5 g/dl (33.0-37.0); MEAN PLATELET VOLUME 11.3 fl (9.6-12.3); MONO # 1.1 10*3/uL (0.1-1.0); MONO % 12.2 % (3.0-9.0); NEUT # 5.7 10*3/uL (2.3-7.9); NEUT % 64.1 % (47.0-73.0); PLATELET COUNT AUTOMATED 224 10*3/uL (130-400); RED CELL DISTRI WIDTH 12.5 % (0-14.5); WHITE BLOOD COUNT 8.9 10*3/uL (4.8-10.8)
[2021-05-22 07:56] VITALS: BP 166/111
[2021-05-22 12:00] VITALS: BP 140/48; BP 142/96
[2021-05-22 16:00] VITALS: BP 148/99
[2021-05-22 20:00] VITALS: BP 132/93
[2021-05-23] VITALS: BP 140/85
[2021-05-23 04:00] VITALS: BP 160/112
[2021-05-23 04:50] LABS: BASO % 0.6 % (0.0-1.0); EOS # 0.2 10*3/uL (0.0-0.4); EOS % 2.1 % (1.0-4.0); HEMATOCRIT 49.9 % (42.0-52.0); LYMPH # 2.2 10*3/uL (1.3-4.4); MEAN CELL VOLUME 94.2 fl (80.0-94.0); MEAN CORPUSCULAR HGB 32.3 pg (27.0-31.0); MEAN CORPUSCULAR HGB CONC 34.3 g/dl (33.0-37.0); MEAN PLATELET VOLUME 10.9 fl (9.6-12.3); MONO # 0.9 10*3/uL (0.1-1.0); NEUT # 3.8 10*3/uL (2.3-7.9); NEUT % 52.9 % (47.0-73.0); PLATELET COUNT AUTOMATED 213 10*3/uL (130-400); RED CELL DISTRI WIDTH 12.6 % (0-14.5); WHITE BLOOD COUNT 7.1 10*3/uL (4.8-10.8)
[2021-05-23 05:17] LABS: ALKALINE PHOSPHATASE 89 U/L (45-117); BUN 12 mg/dl (7-24); CHLORIDE 111 mmol/L (98-107); CREATININE 0.77 mg/dL (0.70-1.30); POTASSIUM 3.4 mmol/L (3.5-5.1); SGOT/AST 18 IU/L (3-35); SGPT/ALT 26 U/L (12-78); SODIUM 137 mmol/L (136-145); TOTAL PROTEIN 6.3 gm/dL (6.4-8.2)
[2021-05-23 08:00] VITALS: BP 143/99
[2021-05-23 12:00] VITALS: BP 142/99
[2021-05-23 16:00] VITALS: BP 137/76
[2021-05-23 20:00] VITALS: BP 144/91
[2021-05-24 04:00] VITALS: BP 146/101
[2021-05-24 05:00] LABS: BUN 14 mg/dl (7-24); CHLORIDE 110 mmol/L (98-107); CREATININE 0.75 mg/dL (0.70-1.30); POTASSIUM 3.6 mmol/L (3.5-5.1); SODIUM 139 mmol/L (136-145)
[2021-05-24 08:00] VITALS: BP 164/109
[2021-05-24 11:35] VITALS: BP 159/119
[2021-05-24 12:45] VITALS: BP 129/75
[2021-05-24 16:00] VITALS: BP 139/85
[2021-05-24] MEDS ORDERED: DOXYCYCLINE MO100 M1 PO (19:54)
[2021-05-24 20:00] VITALS: BP 171/101
[2021-05-24] MEDS ORDERED: AMLODIPINE BESYL5 MG PO (20:02)
[2021-05-24] MEDS ORDERED: LISINOPRIL10 M1 PO (20:02)
== END 2021-05-24 21:39 | disposition left against medical advice (07) | DRG 853 ==
LOC: ED 20:09 → EDHOLD 05-16 10:47 → ICCU 05-16 10:47 → 4E 05-16 10:47 → ICCU 05-18 03:14
PROVIDERS: Family Medicine; Internal Medicine; Student in an Organized Health Care Education/Training Program; ADMIT Student in an Organized Health Care Education/Training Program; ATTEND Student in an Organized Health Care Education/Training Program
PROC: 0JBP0ZZ Excision of Left Lower Leg Subcutaneous Tissue and Fascia, Open Approach (ICD-10-PCS; principal; 2021-05-17)
PROC: 0HBRXZZ Excision of Toe Nail, External Approach (ICD-10-PCS; 2021-05-17)
PROC: 0HBRXZZ Excision of Toe Nail, External Approach (ICD-10-PCS; 2021-05-17)
PROC: 0HBRXZZ Excision of Toe Nail, External Approach (ICD-10-PCS; 2021-05-17)
PROC: 0HBRXZZ Excision of Toe Nail, External Approach (ICD-10-PCS; 2021-05-17)
PROC: 0HBRXZZ Excision of Toe Nail, External Approach (ICD-10-PCS; 2021-05-17)
PROC: 0HBRXZZ Excision of Toe Nail, External Approach (ICD-10-PCS; 2021-05-17)
PROC: 0HBRXZZ Excision of Toe Nail, External Approach (ICD-10-PCS; 2021-05-17)
PROC: 0HBRXZZ Excision of Toe Nail, External Approach (ICD-10-PCS; 2021-05-17)
PROC: 0HBRXZZ Excision of Toe Nail, External Approach (ICD-10-PCS; 2021-05-17)
PROC: 0HBRXZZ Excision of Toe Nail, External Approach (ICD-10-PCS; 2021-05-17)
PROC: BD1BYZZ Fluoroscopy of Mouth/Oropharynx using Other Contrast (ICD-10-PCS; 2021-05-18)
PROC: 3E03317 Introduction of Other Thrombolytic into Peripheral Vein, Percutaneous Approach (ICD-10-PCS; 2021-05-18)
DX: A41.9 Sepsis, unspecified organism (principal); E43 Unspecified severe protein-calorie malnutrition; L03.116 Cellulitis of left lower limb; F10.230 Alcohol dependence with withdrawal, uncomplicated; L97.929 Non-pressure chronic ulcer of unspecified part of left lower leg with unspecified severity; Z53.29 Procedure and treatment not carried out because of patient's decision for other reasons; Z20.822 Contact with and (suspected) exposure to COVID-19; E11.51 Type 2 diabetes mellitus with diabetic peripheral angiopathy without gangrene; E87.6 Hypokalemia; I10 Essential (primary) hypertension; E78.5 Hyperlipidemia, unspecified; B35.1 Tinea unguium; E11.622 Type 2 diabetes mellitus with other skin ulcer; N43.3 Hydrocele, unspecified; E11.40 Type 2 diabetes mellitus with diabetic neuropathy, unspecified; Z79.4 Long term (current) use of insulin; Z79.82 Long term (current) use of aspirin; Z79.899 Other long term (current) drug therapy; Z82.3 Family history of stroke; Z82.49 Family history of ischemic heart disease and other diseases of the circulatory system; Z83.3 Family history of diabetes mellitus; Z86.73 Personal history of transient ischemic attack (TIA), and cerebral infarction without residual deficits; Z68.30 Body mass index [BMI] 30.0-30.9, adult

== ENCOUNTER 2021-06-14 16:31 | Inpatient (IN) | payer OTHER ==
[~2021-06-14] VITALS: Ht 175.3 cm; Wt 65.0 kg
[~2021-06-14 16:31] MED LIST changes: +AMITRIPTYLINE50 MG PO; +AMLODIPINE BESYL5 MG PO; +DOXYCYCLINE MO100 M1 PO; +LISINOPRIL10 M1 PO; +LYRICA200 M1 PO
[2021-06-14 17:01] VITALS: BP 173/101
[2021-06-14 17:08] LABS: BASO % 0.4 % (0.0-1.0); EOS % 0.3 % (1.0-4.0); HEMATOCRIT 52.1 % (42.0-52.0); LYMPH % 11.3 % (27.0-41.0); MEAN CORPUSCULAR HGB 32.1 pg (27.0-31.0); MEAN CORPUSCULAR HGB CONC 35.7 g/dl (33.0-37.0); MEAN PLATELET VOLUME 10.1 fl (9.6-12.3); MONO # 0.8 10*3/uL (0.1-1.0); MONO % 8.4 % (3.0-9.0); NEUT # 7.1 10*3/uL (2.3-7.9); NEUT % 79.3 % (47.0-73.0); PLATELET COUNT AUTOMATED 232 10*3/uL (130-400); RED BLOOD COUNT 5.79 10*6/uL (4.50-5.90); RED CELL DISTRI WIDTH 12.7 % (0-14.5); WHITE BLOOD COUNT 8.9 10*3/uL (4.8-10.8)
[2021-06-14 17:25] LABS: ALKALINE PHOSPHATASE 126 U/L (45-117); BUN 9 mg/dl (7-24); CHLORIDE 107 mmol/L (98-107); CREATININE 1.17 mg/dL (0.70-1.30); ETHYL ALCOHOL < 3.0 mg/dl (<3); POTASSIUM 4.2 mmol/L (3.5-5.1); SGOT/AST 24 IU/L (3-35); SGPT/ALT 31 U/L (12-78); SODIUM 137 mmol/L (136-145); TOTAL PROTEIN 7.2 gm/dL (6.4-8.2)
[2021-06-14 19:40] VITALS: BP 158/124
[2021-06-14 23:09] LABS: BILIRUBIN Negative (Negative); BLOOD Negative (Negative); CLARITY Clear (Clear); COLOR Yellow (Yellow); GLUCOSE 3+ (Negative); KETONE Trace (Negative); LEUKO ESTERASE Negative (Negative); NITRITE Negative (Negative); PH 5.5 (4.5-8.0); SPECIFIC GRAVITY >= 1.030 (1.001-1.030)
[2021-06-14 23:15] VITALS: BP 141/107
[2021-06-14 23:17] LABS: URINE AMPHETAMINES < 1000 (1000ng/ml); URINE BARBITURATES < 200 (200ng/ml); URINE BENZODIAZEPINES > 200 (200ng/ml); URINE CANNABINOIDS (THC) < 50 (50ng/ml); URINE COCAINE < 300 (300ng/ml); URINE METHADONE < 300 (300ng/ml); URINE OPIATES < 300 (300ng/ml)
[2021-06-14 23:21] LABS: URINE PHENCYCLIDINE < 25 (25ng/ml)
[2021-06-15] VITALS (7 sets, daily range): BP systolic 131–170; BP diastolic 69–110
[2021-06-15 05:57] LABS: ALKALINE PHOSPHATASE 104 U/L (45-117); BUN 9 mg/dl (7-24); CHLORIDE 113 mmol/L (98-107); CREATININE 0.83 mg/dL (0.70-1.30); POTASSIUM 3.5 mmol/L (3.5-5.1); SGOT/AST 12 IU/L (3-35); SGPT/ALT 24 U/L (12-78); SODIUM 141 mmol/L (136-145); TOTAL PROTEIN 6.2 gm/dL (6.4-8.2)
[2021-06-15 06:33] LABS: BASO % 0.4 % (0.0-1.0); EOS # 0.1 10*3/uL (0.0-0.4); HEMATOCRIT 49.3 % (42.0-52.0); LYMPH % 28.5 % (27.0-41.0); MEAN CELL VOLUME 92.5 fl (80.0-94.0); MEAN CORPUSCULAR HGB 31.9 pg (27.0-31.0); MEAN CORPUSCULAR HGB CONC 34.5 g/dl (33.0-37.0); MEAN PLATELET VOLUME 10.6 fl (9.6-12.3); MONO # 0.6 10*3/uL (0.1-1.0); MONO % 8.5 % (3.0-9.0); NEUT # 4.2 10*3/uL (2.3-7.9); NEUT % 60.2 % (47.0-73.0); PLATELET COUNT AUTOMATED 198 10*3/uL (130-400); RED BLOOD COUNT 5.33 10*6/uL (4.50-5.90); RED CELL DISTRI WIDTH 12.9 % (0-14.5)
[2021-06-16] VITALS: BP 122/92
[2021-06-16 06:04] LABS: ALKALINE PHOSPHATASE 95 U/L (45-117); BUN 13 mg/dl (7-24); CHLORIDE 110 mmol/L (98-107); CREATININE 0.83 mg/dL (0.70-1.30); POTASSIUM 3.4 mmol/L (3.5-5.1); SGOT/AST 14 IU/L (3-35); SGPT/ALT 24 U/L (12-78); SODIUM 139 mmol/L (136-145); TOTAL PROTEIN 5.9 gm/dL (6.4-8.2)
[2021-06-16 06:13] LABS: BASO # 0.1 10*3/uL (0.0-0.1); BASO % 0.7 % (0.0-1.0); EOS # 0.2 10*3/uL (0.0-0.4); EOS % 2.6 % (1.0-4.0); HEMATOCRIT 48.2 % (42.0-52.0); LYMPH # 2.5 10*3/uL (1.3-4.4); LYMPH % 34.1 % (27.0-41.0); MEAN CELL VOLUME 94.7 fl (80.0-94.0); MEAN CORPUSCULAR HGB 32.4 pg (27.0-31.0); MEAN CORPUSCULAR HGB CONC 34.2 g/dl (33.0-37.0); MEAN PLATELET VOLUME 11.1 fl (9.6-12.3); MONO # 0.5 10*3/uL (0.1-1.0); MONO % 6.7 % (3.0-9.0); NEUT # 4.1 10*3/uL (2.3-7.9); NEUT % 55.4 % (47.0-73.0); PLATELET COUNT AUTOMATED 190 10*3/uL (130-400); RED BLOOD COUNT 5.09 10*6/uL (4.50-5.90); RED CELL DISTRI WIDTH 12.7 % (0-14.5); WHITE BLOOD COUNT 7.4 10*3/uL (4.8-10.8)
[2021-06-16 08:00] VITALS: BP 128/84
[2021-06-16 12:00] VITALS: BP 152/92
[2021-06-16 17:36] VITALS: BP 132/82
[2021-06-16 20:00] VITALS: BP 150/62
[2021-06-16 22:21] LABS: ALKALINE PHOSPHATASE 92 U/L (45-117); BUN 16 mg/dl (7-24); CHLORIDE 110 mmol/L (98-107); CREATININE 0.85 mg/dL (0.70-1.30); POTASSIUM 4.1 mmol/L (3.5-5.1); SGOT/AST 14 IU/L (3-35); SGPT/ALT 25 U/L (12-78); SODIUM 139 mmol/L (136-145); TOTAL PROTEIN 5.8 gm/dL (6.4-8.2)
[2021-06-17] VITALS: BP 141/80
[2021-06-17 04:00] VITALS: BP 140/83
[2021-06-17 08:00] VITALS: BP 152/92
[2021-06-17 12:00] VITALS: BP 128/89
[2021-06-17 16:00] VITALS: BP 118/72
[2021-06-17 20:00] VITALS: BP 131/84
[2021-06-18] VITALS: BP 133/86
[2021-06-18 08:00] VITALS: BP 143/93
[2021-06-18 12:00] VITALS: BP 140/99
[2021-06-18 20:00] VITALS: BP 144/94
[2021-06-19] VITALS: BP 150/92
[2021-06-19 08:00] VITALS: BP 142/80
[2021-06-19 12:00] VITALS: BP 110/79
[2021-06-19 16:00] VITALS: BP 112/76
[2021-06-19 20:00] VITALS: BP 128/83
[2021-06-20] VITALS: BP 136/84; BP 141/93
[2021-06-20 06:20] LABS: ALKALINE PHOSPHATASE 79 U/L (45-117); BUN 9 mg/dl (7-24); CHLORIDE 107 mmol/L (98-107); CREATININE 0.88 mg/dL (0.70-1.30); POTASSIUM 3.3 mmol/L (3.5-5.1); SGOT/AST 25 IU/L (3-35); SGPT/ALT 43 U/L (12-78); SODIUM 140 mmol/L (136-145); TOTAL PROTEIN 6.3 gm/dL (6.4-8.2)
[2021-06-20 06:29] LABS: BASO % 0.5 % (0.0-1.0); EOS # 0.2 10*3/uL (0.0-0.4); HEMATOCRIT 48.4 % (42.0-52.0); LYMPH # 2.6 10*3/uL (1.3-4.4); LYMPH % 35.6 % (27.0-41.0); MEAN CELL VOLUME 94.2 fl (80.0-94.0); MEAN CORPUSCULAR HGB 32.3 pg (27.0-31.0); MEAN CORPUSCULAR HGB CONC 34.3 g/dl (33.0-37.0); MONO # 0.8 10*3/uL (0.1-1.0); NEUT # 3.6 10*3/uL (2.3-7.9); NEUT % 49.6 % (47.0-73.0); PLATELET COUNT AUTOMATED 192 10*3/uL (130-400); RED BLOOD COUNT 5.14 10*6/uL (4.50-5.90); RED CELL DISTRI WIDTH 12.4 % (0-14.5); WHITE BLOOD COUNT 7.3 10*3/uL (4.8-10.8)
[2021-06-20 08:00] VITALS: BP 141/98
[2021-06-20 12:00] VITALS: BP 130/78
[2021-06-20 16:00] VITALS: BP 123/77
[2021-06-20 20:00] VITALS: BP 133/85
[2021-06-21] VITALS: BP 151/90
[2021-06-21 08:00] VITALS: BP 127/93
[2021-06-21] MEDS ORDERED: ATARAX,VISTARIL50 MG PO (09:00)
[2021-06-21] MEDS ORDERED: DULOXETINE HCL60 MG PO (09:00)
[2021-06-21] MEDS ORDERED: VITAMIN B-1100 M1 PO (09:00)
[2021-06-21] MEDS ORDERED: LISINOPRIL20 MG PO (09:00)
[2021-06-21] MEDS ORDERED: THERA TABLET400 MCG PO (09:00)
[2021-06-21] MEDS ORDERED: NATURE'S BLEND F1 MG PO (09:00)
[2021-06-21] MEDS ORDERED: TRAZODONE50 MG PO (09:00)
== END 2021-06-21 13:39 | DRG 897 ==
LOC: ED 16:31 → EDHOLD 18:13 → 4E 18:13
PROVIDERS: Emergency Medicine; Hospitalist; Internal Medicine; Student in an Organized Health Care Education/Training Program; ADMIT Family Medicine; ATTEND Family Medicine
DX: F10.239 Alcohol dependence with withdrawal, unspecified (principal); I69.354 Hemiplegia and hemiparesis following cerebral infarction affecting left non-dominant side; D75.1 Secondary polycythemia; I10 Essential (primary) hypertension; Z20.822 Contact with and (suspected) exposure to COVID-19; F17.213 Nicotine dependence, cigarettes, with withdrawal; D72.810 Lymphocytopenia; F32.A Depression, unspecified; J44.9 Chronic obstructive pulmonary disease, unspecified; E78.5 Hyperlipidemia, unspecified; E11.65 Type 2 diabetes mellitus with hyperglycemia; E11.42 Type 2 diabetes mellitus with diabetic polyneuropathy; M54.50 Low back pain, unspecified; G89.29 Other chronic pain; Z96.652 Presence of left artificial knee joint; Z82.3 Family history of stroke; Z83.3 Family history of diabetes mellitus; Z79.82 Long term (current) use of aspirin; Z79.899 Other long term (current) drug therapy; Z90.49 Acquired absence of other specified parts of digestive tract; Z79.2 Long term (current) use of antibiotics; Z71.6 Tobacco abuse counseling

== ENCOUNTER 2021-09-27 03:50 | Inpatient (IN) | payer OTHER ==
[~2021-09-27] VITALS: Ht 172.7 cm; Wt 90.2 kg
[2021-09-27] VITALS (7 sets, daily range): BP systolic 59–141; BP diastolic 31–78
[~2021-09-27 03:50] MED LIST changes: +DULOXETINE HCL60 MG PO; +LISINOPRIL20 MG PO; +MELOXICAM7.5 MG PO; +NATURE'S BLEND F1 MG PO; +THERA TABLET400 MCG PO; +TRAZODONE50 MG PO; +VITAMIN B-1100 M1 PO
[2021-09-27 04:16] LABS: HEMATOCRIT 50.2 % (42.0-52.0); MANUAL DIFF REFLEX YES; MEAN CELL VOLUME 91.6 fl (80.0-94.0); MEAN CORPUSCULAR HGB 31.2 pg (27.0-31.0); MEAN CORPUSCULAR HGB CONC 34.1 g/dl (33.0-37.0); MEAN PLATELET VOLUME 11.9 fl (9.6-12.3); PLATELET COUNT AUTOMATED 356 10*3/uL (130-400); RED BLOOD COUNT 5.48 10*6/uL (4.50-5.90); RED CELL DISTRI WIDTH 15.1 % (0-14.5); WHITE BLOOD COUNT 36.8 10*3/uL (4.8-10.8)
[2021-09-27 04:43] LABS: CREATININE 5.48 mg/dL (0.70-1.30); POTASSIUM 4.6 mmol/L (3.5-5.1)
[2021-09-27 05:03] LABS: PLATELET SUFFICIENCY NORMAL (NORMAL); TOTAL CELLS COUNTED 100 #CELLS
[2021-09-27 06:19] LABS: BILIRUBIN Negative (Negative); BLOOD 3+ (Negative); CLARITY Turbid (Clear); GLUCOSE Trace (Negative); KETONE Trace (Negative); LEUKO ESTERASE 3+ (Negative); NITRITE Negative (Negative); SPECIFIC GRAVITY 1.015 (1.001-1.030)
[2021-09-27 06:34] LABS: VENOUS PH 7.009 (7.37-7.45)
[2021-09-27 07:10] LABS: COLOR Dark Yellow (Yellow)
[2021-09-27 07:12] LABS: WBC TNTC wbc/hpf (0-5)
[2021-09-27 08:49] LABS: URINE AMPHETAMINES < 1000 (1000ng/ml); URINE BARBITURATES < 200 (200ng/ml); URINE BENZODIAZEPINES < 200 (200ng/ml); URINE CANNABINOIDS (THC) < 50 (50ng/ml); URINE COCAINE < 300 (300ng/ml); URINE METHADONE < 300 (300ng/ml); URINE OPIATES < 300 (300ng/ml)
[2021-09-27 08:54] LABS: URINE PHENCYCLIDINE < 25 (25ng/ml)
[2021-09-27 08:59] LABS: CREATININE 5.55 mg/dL (0.70-1.30); POTASSIUM 5.1 mmol/L (3.5-5.1)
== END 2021-09-27 15:11 | disposition short-term general hospital (02) | DRG 871 ==
LOC: ED 03:50 → EDHOLD 05:40
PROVIDERS: Emergency Medicine; Internal Medicine; ADMIT Family Medicine; ATTEND Family Medicine
PROC: 5A1935Z Respiratory Ventilation, Less than 24 Consecutive Hours (ICD-10-PCS; principal; 2021-09-27)
PROC: 0BH17EZ Insertion of Endotracheal Airway into Trachea, Via Natural or Artificial Opening (ICD-10-PCS; 2021-09-27)
PROC: 02HV33Z Insertion of Infusion Device into Superior Vena Cava, Percutaneous Approach (ICD-10-PCS; 2021-09-27)
PROC: B548ZZA Ultrasonography of Superior Vena Cava, Guidance (ICD-10-PCS; 2021-09-27)
DX: A41.9 Sepsis, unspecified organism (principal); E43 Unspecified severe protein-calorie malnutrition; N17.0 Acute kidney failure with tubular necrosis; R65.21 Severe sepsis with septic shock; I46.9 Cardiac arrest, cause unspecified; E87.1 Hypo-osmolality and hyponatremia; N39.0 Urinary tract infection, site not specified; E87.2 Acidosis; Z96.652 Presence of left artificial knee joint; E11.65 Type 2 diabetes mellitus with hyperglycemia; G89.29 Other chronic pain; J44.9 Chronic obstructive pulmonary disease, unspecified; M54.9 Dorsalgia, unspecified; E78.5 Hyperlipidemia, unspecified; F32.9 Major depressive disorder, single episode, unspecified; M19.90 Unspecified osteoarthritis, unspecified site; E11.51 Type 2 diabetes mellitus with diabetic peripheral angiopathy without gangrene; R74.01 Elevation of levels of liver transaminase levels; E11.42 Type 2 diabetes mellitus with diabetic polyneuropathy; E87.8 Other disorders of electrolyte and fluid balance, not elsewhere classified; D72.829 Elevated white blood cell count, unspecified; I10 Essential (primary) hypertension; F10.10 Alcohol abuse, uncomplicated; Z90.49 Acquired absence of other specified parts of digestive tract; Z82.49 Family history of ischemic heart disease and other diseases of the circulatory system; Z82.3 Family history of stroke; Z86.73 Personal history of transient ischemic attack (TIA), and cerebral infarction without residual deficits; Z79.4 Long term (current) use of insulin; I25.2 Old myocardial infarction; Z68.27 Body mass index [BMI] 27.0-27.9, adult